=== PATIENT | male | born 1935 ===

== ENCOUNTER 2022-12-25 14:26 | Emergency (ER) | payer OTHER, MEDICARE ==
[2022-12-25 15:26] LABS: BASOPHILS ABSOLUTE AUTO 0.03 K/uL (0.02-0.10); BASOPHILS PERCENT AUTO 0.3 % (0.0-0.5); EOSINOPHILS ABSOLUTE AUTO 0.31 K/uL (0.04-0.40); EOSINOPHILS PERCENT AUTO 3.2 % (1.0-5.0); HEMOGLOBIN 14.6 g/dL (13.0-18.0); LYMPHOCYTES ABSOLUTE AUTO 2.61 K/uL (1.50-4.00); LYMPHOCYTES PERCENT AUTO 26.9 % (20.0-40.0); MEAN CORPUSCULAR HEMOGLOBIN 29.6 pg (27.0-32.0); MEAN CORPUSCULAR HGB CONC 31.7 g/dL (31.0-35.0); MEAN CORPUSCULAR VOLUME 93 fL (76-96); MEAN PLATELET VOLUME 11.1 fL (6.0-10.0); MONOCYTES ABSOLUTE AUTO 0.72 K/uL (0.20-0.80); MONOCYTES PERCENT AUTO 7.4 % (3.0-10.0); NEUTROPHILS ABSOLUTE AUTO 6.04 K/uL (2.00-7.50); NEUTROPHILS PERCENT AUTO 62.2 % (45.0-70.0); PLATELET COUNT,PLT 217 K/uL (150-400); RED BLOOD CELL COUNT 4.94 M/uL (4.50-6.50); RED CELL DISTRIBUTION WIDTH 14.2 % (11.0-16.0); WHITE BLOOD CELL COUNT,WBC 9.7 K/uL (4.0-11.0)
[2022-12-25 15:27] LABS: APPEARANCE,URINE CLEAR (CLEAR); BILIRUBIN,URINE NEGATIVE (NEGATIVE); COLOR,URINE YELLOW; GLUCOSE,URINE 500 mg/dL (NEGATIVE); KETONES,URINE NEGATIVE (NEGATIVE); LEUKOCYTE ESTERASE,URINE NEGATIVE (NEGATIVE); NITRITE,URINE NEGATIVE (NEGATIVE); OCCULT BLOOD,URINE SMALL (NEGATIVE); PROTEIN,URINE 100 mg/dL (NEGATIVE); UROBILINOGEN,URINE 0.2 E.U./dL (0.2-1.0)
[2022-12-25 15:31] LABS: RBC,URINE 0-5 /HPF; WBC,URINE NOT SEEN /HPF
[2022-12-25 15:35] LABS: A/G RATIO 0.8 (0.8-2.0); ALBUMIN 3.5 g/dL (3.4-5.0); ANION GAP 8.5 mmol/L (5.0-15.0); BILIRUBIN TOTAL 0.7 mg/dL (0.0-1.0); BUN/CREATININE RATIO 14.9 (6-25); CREATININE 1.14 mg/dL (0.70-1.30); EST CRCL DRUG DOSING (CG) 41.2 mL/min; POTASSIUM,K 3.5 mmol/L (3.5-5.1); PROTEIN TOTAL,TP 7.8 g/dL (6.4-8.2)
== END 2022-12-25 15:25 ==
LOC: LB.ED 14:26
DX: S40.812A Abrasion of left upper arm, initial encounter (principal); S40.811A Abrasion of right upper arm, initial encounter; V49.9XXA Car occupant (driver) (passenger) injured in unspecified traffic accident, initial encounter
CPT/HCPCS: 36415; 80053; 81001; 83605; 84484; 85025; 86900; 86901; 99285; A0425; A0429